=== PATIENT | female | born 1935 | race Caucasian/White ===

== ENCOUNTER 2017-10-16 17:31 | Emergency (ER) | payer OTHER ==
--- NOTE | 2017-10-16 19:42 | Diagnostic Imaging Report ---
EXAMINATION: Left rib series with PA chest. 5 views COMPARISON: Left-sided pain status post fall. CLINICAL HISTORY: DISCUSSION: Lines/tubes: None. Lungs: The lungs are hyperinflated bilaterally. There is no evidence of pneumonia or pulmonary edema. Pleura: Small left pleural effusion. There is no pneumothorax. Heart and mediastinum: Cardiomediastinal silhouette is unremarkable. Pulmonary vasculature is normal. Bones and soft tissues: There is a displaced acute fracture of the left anterior lateral sixth rib. There also fractures of the third, fourth and fifth left anterolateral ribs which are less displaced. IMPRESSION: 1. Acute fractures of the 3rd-6th left anterolateral ribs. 2. Small volume left pleural effusion. Signed by: Dr. Radha Escobar M.D. on 10/16/2017 7:38 PM
--- NOTE | 2017-10-16 22:49 | Diagnostic Imaging Report ---
EXAM: HIP RIGHT 2-3 VW (+/- PELVIS) INDICATION: Right hip pain COMPARISON: None FINDINGS: BONES: No acute fractures. JOINTS: No malalignment. SOFT TISSUES: Large amount of retained stool in the rectum. IMPRESSION: No evidence of a right hip fracture. Signed by: Dr. Cecilia Freeman M.D. on 10/16/2017 10:46 PM
[2017-10-17 00:45] VITALS: BP 177/83
== END 2017-10-17 00:42 | disposition home or self-care (01) ==
LOC: ER 17:31
DX: M25.551 Pain in right hip (principal); R07.89 Other chest pain; S22.42XA Multiple fractures of ribs, left side, initial encounter for closed fracture; W01.0XXA Fall on same level from slipping, tripping and stumbling without subsequent striking against object, initial encounter; Y92.008 Other place in unspecified non-institutional (private) residence as the place of occurrence of the external cause; I10 Essential (primary) hypertension; E78.5 Hyperlipidemia, unspecified; F03.90 Unspecified dementia, unspecified severity, without behavioral disturbance, psychotic disturbance, mood disturbance, and anxiety
CPT/HCPCS: 71101; 99283